=== PATIENT | male | born 1995 | race Caucasian/White ===

== ENCOUNTER 2020-10-27 21:08 | Emergency (ER) | payer BC, OTHER ==
[2020-10-27 21:21] VITALS: RESP 18
--- NOTE | 2020-10-27 21:36 | ED ---
Psych HPI - General Chief Complaint: Psychiatric Symptoms Stated Complaint: Altered Mental Status Time Seen by Provider: 10/27/20 21:13 Source: patient, EMS Mode of arrival: EMS - History of Present Illness Initial Comments: 25 year-old male patient coming in via EMS after being found in a ditch by [facility] Police. Patient states that he left [facility] [facility] facility today because he did not want to be there anymore. States that he does not feel comfortable being in the world on his own he is not ready for that. He is reporting some odd things like government messages being texted to a girl he knows, states that she was given "launch codes". Patient denies any suicidal or homicidal ideation. States he last used alcohol and fentanyl 10 days ago. Denies any current injury or physical illness. Patient denies any recent rash, fever, chills, cough, shortness of breath, chest pain, abdominal pain, nausea, vomiting, diarrhea, constipation, back pain, numbness, tingling, dizziness, weakness, hematuria, dysuria, urinary urgency, urinary frequency, headache, visual changes, or any other complaints. - Related Data Home Medications Medication Instructions Recorded Confirmed Divalproex [Depakote] 250 mg PO BID 10/27/20 10/27/20 Allergies Allergy/AdvReac Type Severity Reaction Status Date / Time No Known Allergies Allergy Unverified 10/27/20 22:08 Review of Systems ROS Statement: Those systems with pertinent positive or pertinent negative responses have been documented in the HPI. ROS Other: All systems not noted in ROS Statement are negative. Past Medical History Past Medical History: No Reported History History of Any Multi-Drug Resistant Organisms: None Reported Past Surgical History: No Surgical Hx Reported Past Psychological History: Depression Smoking Status: Current every day smoker Past Alcohol Use History: Abuse Past Drug Use History: IV Drug Use General Exam Limitations: altered mental status General appearance: alert, in no apparent distress, anxious, other (Well- developed, well-nourished adult male patient in no acute distress. Vital signs upon presentation temperature 99.6F, pulse 87, respirations 18, blood pressure 134/94, pulse ox 97% on room air.) Eye exam: Present: normal appearance, PERRL, EOMI. Absent: scleral icterus, conjunctival injection, nystagmus, periorbital swelling Respiratory exam: Present: normal lung sounds bilaterally. Absent: respiratory distress, wheezes, rales, rhonchi, stridor Cardiovascular Exam: Present: regular rate, normal rhythm, normal heart sounds. Absent: systolic murmur, diastolic murmur, rubs, gallop, clicks GI/Abdominal exam: Present: soft, normal bowel sounds. Absent: distended, tenderness, guarding, rebound, rigid Neurological exam: Present: alert, oriented X3, CN II-XII intact Psychiatric exam: Present: normal affect, normal mood, anxious, other (delusions). Absent: homicidal ideation, suicidal ideation Skin exam: Present: warm, dry, intact, normal color. Absent: rash Course Vital Signs 10/27/20 10/27/20 21:11 23:23 Temperature 99.6 F Pulse Rate 87 81 Respiratory 18 18 Rate Blood Pressure 154/94 124/68 O2 Sat by Pulse 97 95 Oximetry Medical Decision Making - Medical Decision Making 25-year-old male patient presents to the emergency department today for evaluation. The patient was found in a ditch by [facility] police. He states that he wanted to come here because he doesn't look comfortable being out of the world after being in rehab for alcohol and fentanyl. He denies suicidal or homicidal ideation. He is answering questions appropriately. He did make some delusional statements. We did clear him medically. He did test positive for methamphetamines and marijuana. He was evaluated by emergency psychiatric services. Is felt that he is safe for discharge home at this time. He is instructed to follow-up with outpatient mental health treatment. He is i nstructed to consider readmitting himself to rehab. Return parameters were discussed in detail. He verbalizes understanding and agrees with this plan. - Lab Data Lab Results 10/27/20 Range/Units 21:48 Urine Opiates Screen Not Detected (NotDetected) Ur Oxycodone Screen Not Detected (NotDetected) Urine Methadone Screen Not Detected (NotDetected) Ur Propoxyphene Screen Not Detected (NotDetected) Ur Barbiturates Screen Not Detected (NotDetected) U Tricyclic Antidepress Not Detected (NotDetected) Ur Phencyclidine Scrn Not Detected (NotDetected) Ur Amphetamines Screen Not Detected (NotDetected) U Methamphetamines Scrn Detected H (NotDetected) U Benzodiazepines Scrn Not Detected (NotDetected) Urine Cocaine Screen Not Detected (NotDetected) U Marijuana (THC) Screen Detected H (NotDetected) Disposition Clinical Impression: Delusions, Polysubstance abuse Disposition: HOME SELF-CARE Condition: Good Instructions (If sedation given, give patient instructions): Polysubstance Abuse (ED) Additional Instructions: Follow-up outpatient with mental services as directed. Follow-up through primary care physician for recheck in 1-2 days. Return to the emergency department for any new, worsening, or concerning symptoms. Is patient prescribed a controlled substance at d/c from ED?: No Referrals: Nonstaff,Physician [Primary Care Provider] - 1-2 days Time of Disposition: 00:48
[2020-10-27 22:10] LABS: Amphetamine Screen,Urine Not Detected (NotDetected); Barbiturate Screen,Urine Not Detected (NotDetected); Benzodiazepines Screen,Urine Not Detected (NotDetected); Cocaine Screen,Urine Not Detected (NotDetected); Methadone Screen, Urine Not Detected (NotDetected); Opiate Screen,Urine Not Detected (NotDetected); Oxycodone Screen, Urine Not Detected (NotDetected); Phencyclidine Screen,Urine Not Detected (NotDetected); Tricyclic Antidepressant,Urine Not Detected (NotDetected); Urn Cannabinoid Scrn Detected (NotDetected)
[2020-10-28 02:31] VITALS: BP 119/94; PULSE 96; TEMP 98.4
== END 2020-10-28 01:26 | disposition home or self-care (01) ==
LOC: EC 21:08
DX: F19.10 Other psychoactive substance abuse, uncomplicated (principal); F22 Delusional disorders; F32.9 Major depressive disorder, single episode, unspecified; F17.200 Nicotine dependence, unspecified, uncomplicated; Z79.899 Other long term (current) drug therapy
CPT/HCPCS: 80306; 82075; 99285